=== PATIENT | male | born 1990 | race Hispanic/Latino ===

== ENCOUNTER 2022-03-08 13:29 | Outpatient (CLI) | payer OTHER | END 2022-03-08 13:30 | disposition home or self-care (01) | LOC: CSHMRI 13:29 | PROVIDERS: ATTEND Orthopaedic Surgery | DX: M23.91 Unspecified internal derangement of right knee (principal); S83.251A Bucket-handle tear of lateral meniscus, current injury, right knee, initial encounter; M25.461 Effusion, right knee; M71.21 Synovial cyst of popliteal space [Baker], right knee ==